=== PATIENT | female | born 1930 | race Two or more races ===

== ENCOUNTER 2018-09-25 13:30 | Inpatient (IN) | payer OTHER ==
[~2018-09-25] VITALS: Ht 152.4 cm; Wt 35.4 kg
[2018-09-27] MEDS ORDERED: ARICEPT PO (08:41)
[2018-09-27] MEDS ORDERED: GLYCOTROL CAPS1 EACH PO (08:41)
[2018-09-27] MEDS ORDERED: NAMENDA5 MG PO (08:41)
[2018-09-27] MEDS ORDERED: BENTYL10 MG/1 ML IM (08:42)
[2018-09-27] MEDS ORDERED: SYNTHROID50 MCG PO (08:42)
[2018-09-27] MEDS ORDERED: LEVSIN0.125 MG PO (08:43)
[2018-09-30] MEDS ORDERED: INTESTINEX680 M1 PO (12:59)
== END 2018-09-30 14:22 | disposition home or self-care (01) | DRG 330 ==
LOC: RECOVERY 13:30 → SURG 09-27 09:17 → O/R 09-27 09:17 → RECOVERY 09-27 13:30 → SURG 09-27 17:54
PROVIDERS: ADMIT Surgery
PROC: 0DJD8ZZ Inspection of Lower Intestinal Tract, Via Natural or Artificial Opening Endoscopic (ICD-10-PCS; 2018-09-27)
PROC: 0DTN4ZZ Resection of Sigmoid Colon, Percutaneous Endoscopic Approach (ICD-10-PCS; principal; 2018-09-27 10:15)
DX: K57.20 Diverticulitis of large intestine with perforation and abscess without bleeding (principal); E87.1 Hypo-osmolality and hyponatremia; K55.1 Chronic vascular disorders of intestine; I10 Essential (primary) hypertension; K64.1 Second degree hemorrhoids; K59.09 Other constipation; E03.8 Other specified hypothyroidism; Z53.1 Procedure and treatment not carried out because of patient's decision for reasons of belief and group pressure; Z88.0 Allergy status to penicillin

== ENCOUNTER 2019-09-29 07:41 | Day surgery (SDC) | payer OTHER ==
[~2019-09-29 07:41] MED LIST: ARICEPT PO; BENTYL10 MG/1 ML IM; GLYCOTROL CAPS1 EACH PO; INTESTINEX680 M1 PO; LEVSIN0.125 MG PO; NAMENDA5 MG PO; SYNTHROID50 MCG PO
== END 2019-09-29 10:50 | disposition home or self-care (01) ==
LOC: AMB-ENDOS 07:41 → CIR.AMB 13:00
DX: D12.3 Benign neoplasm of transverse colon (principal); D12.4 Benign neoplasm of descending colon; K57.32 Diverticulitis of large intestine without perforation or abscess without bleeding; K52.89 Other specified noninfective gastroenteritis and colitis